=== PATIENT | female | born 1975 | race Caucasian/White ===

== ENCOUNTER 2023-11-03 20:00 | Emergency (ER) | payer OTHER ==
[~2023-11-03] VITALS: Ht 157.5 cm; Wt 65.8 kg
[2023-11-03 20:05] VITALS: BP 137/76; PULSE 76; RESP 18; TEMP 98; O2SAT 98
[2023-11-03 20:44] LABS: BILIRUBIN,URINE NEGATIVE (NEGATIVE); BLOOD, URINE 3+ (NEGATIVE); COLOR,URINE YELLOW (YELLOW); LEUKOCYTE ESTERASE ,URINE 1+ (NEGATIVE); NITRITE, URINE NEGATIVE (NEGATIVE); PROTEIN,URINE TRACE (NEGATIVE); UGLUCOSE NEGATIVE (NEGATIVE); UROBILINOGEN,URINE 0.2 EU/dL (0.2 - 1)
[2023-11-03] MEDS: KETOROLAC 60 MG/2 ML VIAL IM ONE (20:44)
[2023-11-03 20:45] VITALS: O2SAT 98
[2023-11-03 20:50] LABS: APPEARANCE,URINE HAZY (CLEAR)
[2023-11-03 20:55] LABS: BACTERIA,URINE 3+ /HPF (None Seen); MUCUS,URINE None Seen /LPF (None Seen); RBC,URINE 20-50 /HPF (0-5); SQUAMOUS EPITHELIAL CELL,UR 4-10 (MOD) /LPF (0-3 (FEW))
[2023-11-03] MEDS ORDERED: IBUP-2213 PO (21:13)
[2023-11-03] MEDS ORDERED: CIPR500T4 PO (21:13)
== END 2023-11-03 21:23 | disposition home or self-care (01) ==
LOC: MED 20:00
DX: N39.0 Urinary tract infection, site not specified (principal); R03.0 Elevated blood-pressure reading, without diagnosis of hypertension
CPT/HCPCS: 81001; 81025; 87086; 96372; 99283; J1885